=== PATIENT | male | born 2000 | race Caucasian/White ===

== ENCOUNTER 2019-01-05 21:40 | Emergency (ER) | payer OTHER ==
[~2019-01-05] VITALS: Ht 167.6 cm; Wt 65.3 kg
[2019-01-05 22:00] VITALS: Ht 167.6 cm; Wt 65.3 kg
[2019-01-05 23:17] LABS: BASOPHIL % 0.4 % (0-2); PLATELET COUNT 343 x10^3mcL (130-400); RED CELL DISTRIBUTION WIDTH 12.4 % (11.5-14.5)
[2019-01-05 23:23] LABS: CALCIUM 8.7 mg/dL (8.5-10.1); CARBON DIOXIDE 26.7 mmol/L (21-32); CHLORIDE SERUM 105 mmol/L (98-107); CREATININE SERUM 0.9 mg/dL (0.7-1.3); GFR1 > 60 mL/min; GLUCOSE SERUM 118 mg/dL (74-106); POTASSIUM SERUM 3.7 mmol/L (3.5-5.1); SODIUM SERUM 141 mmol/L (136-145)
[2019-01-06 00:31] VITALS: BP 132/77
== END 2019-01-06 00:31 ==
LOC: ED 21:40
PROVIDERS: Emergency Medicine
DX: R55 Syncope and collapse (principal); Z88.8 Allergy status to other drugs, medicaments and biological substances
CPT/HCPCS: J7030